=== PATIENT | male | born 1990 | race American Indian/Alaskan Native ===

== ENCOUNTER 2016-12-20 00:57 | Emergency (ER) | payer SELFPAY ==
[2016-12-20 01:10] VITALS: O2SAT 97
[2016-12-20] MEDS ORDERED: Bacitracin 500 Units/gm Oint Foilpak UD TOP ONE (01:14)
--- NOTE | 2016-12-20 01:27 | C.PDOC ---
History Of Present Illness A 26 y/o male complains of pain and swelling to the left wrist and abrasions to the bilateral forearms that occurred tonight. Patient states he slipped and fell when running around outdoors. Denies weakness, numbness, LOC, head injury, or any other complaints. Pt is left handed. Time Seen by Provider: 12/20/16 01:11 Chief Complaint (Nursing): Finger,Hand,&Wrist History Per: Patient History/Exam Limitations: no limitations Onset/Duration Of Symptoms: Hrs Current Symptoms Are (Timing): Still Present Quality: "Pain" Severity: Mild Exacerbating Factor(s): Movement Recent travel outside of the [place]: No Additional History Per: Patient Past Medical History Reviewed: Historical Data, Nursing Documentation, Vital Signs Vital Signs: Last Vital Signs Temp 97.7 F 12/20/16 02:29 Pulse 79 12/20/16 02:29 Resp 18 12/20/16 02:29 BP 119/80 12/20/16 02:29 Pulse Ox 97 12/20/16 02:29 - Medical History PMH: Asthma, Kidney Stones Denies: Chronic Kidney Disease Surgical History: Appendectomy Family History: States: Unknown Family Hx - Social History Hx Tobacco Use: No Hx Alcohol Use: No Hx Substance Use: No - Immunization History Hx Tetanus Toxoid Vaccination: Yes Hx Influenza Vaccination: No Hx Pneumococcal Vaccination: No Review Of Systems Except As Marked, All Systems Reviewed And Found Negative. Constitutional: Negative for: Fever, Chills, Other (Head injury) Musculoskeletal: Positive for: Arm Pain (left wrist) Skin: Positive for: Other (abrasions) Neurological: Negative for: Weakness, Numbness, Other (LOC) Physical Exam - Physical Exam Appears: Non-toxic, No Acute Distress Skin: Warm, Dry, Other (superficial abrasions to dorsal forearms bilaterally and to right palm) Head: Atraumatic, Normacephalic Eye(s): bilateral: Normal Inspection Neck: Normal ROM Pulses: Left Radial: Normal, Right Radial: Normal Neurological/Psych: Oriented x3, Normal Speech Gait: Steady Additional Physical Exam Comments: Left Upper extremity: obvious deformity, swelling and tenderness to dorsal radial wrist, limited ROM secondary to pain. radial pulse intact. Elbow, hand and digits nontender with normal ROM. All other extremities with FROM and nontender. ED Course And Treatment O2 Sat by Pulse Oximetry: 97 (RA) Pulse Ox Interpretation: Normal Orthopedic Time Out: Side verified, Site verified, Patient ID confirmed Procedure: Splint, Fracture reduction Type: Volar Location: Left, Wrist Consent obtained: Verbal Performed by: Mid-level Provider Diagnosis: Fracture (angulated) Type: Closed, Displaced, Angulated Location: Left, Distal Bone: Radius Anesthetic Technique: Regional block (Hematoma block) Anesthetic: Lidocaine 1% Capillary refill: Normal Distal Sensation: Normal Capillary Refill: Normal Distal Sensation: Normal Post-reduction Radiograph: Reduced (mildly displaced) Patient tolerated procedure: Well Medical Decision Making Medical Decision Making: Impression: A 26 y/o M c/o pain and swelling to the left wrist after fall Plan: -Bacitracin -Ultram -Ice -XRAY left wrist Progress: Xray shows impacted distal radial fracture with volar angulation Reduction and splint applied by PA. Arms sling applied Patient given follow up instructions with ortho in timely manner Disposition Counseled Patient/Family Regarding: Need For Followup, Rx Given - Disposition Referrals: Ramila Pérez MD [Staff Provider] - Disposition: HOME/ ROUTINE Disposition Time: 02:40 Condition: STABLE Additional Instructions: Your xray shows a wrist fracture. It is very important you follow up with orthopedic within 1-4 days. A splint has been applied which is a temporary cast. Do not wet splint, keep out of bath, and consider plastic bag. Take pain medication as needed. Motrin is for mild to moderate pain (1-7) and percocet is for severe pain (8-10) Seek medical attention if develop any numbness or pins and needle sensation. Prescriptions: Ibuprofen [Motrin] 600 mg PO Q8 #30 tab oxyCODONE/Acetaminophen [Percocet 5/325 mg Tab] 1 tab PO QID PRN #20 tab PRN Reason: Pain Instructions: Wrist Fracture in Adults (ED) Forms: Work Excuse - POA Present On Arrival: Falls Or Trauma - Clinical Impression Clinical Impression: Radius distal fracture - Scribe Statement The provider has reviewed the documentation as recorded by the Scribe Bhaskar khanna All medical record entries made by the Scribe were at my direction and personally dictated by me. I have reviewed the chart and agree that the record accurately reflects my personal performance of the history, physical exam, medical decision making, and the department course for this patient. I have also personally directed, reviewed, and agree with the discharge instructions and disposition.
[2016-12-20] MEDS ORDERED: Bacitracin 500 Units/gm Oint Foilpak UD ONE ×2 (01:31→01:32)
[2016-12-20] MEDS ORDERED: Lidocaine 1% Inj (20ml) INFIL STA (01:32)
[2016-12-20] MEDS ORDERED: Lidocaine 1% Inj (20ml) ONE (01:38)
[2016-12-20 02:30] VITALS: BP 119/80; PULSE 79; RESP 18; TEMP 97.7
--- NOTE | 2016-12-20 09:02 | RAD ---
PROCEDURE: Left Wrist Radiographs. HISTORY: post reduction film COMPARISON: 12/20/2016 at 1:19 a.m. FINDINGS: BONES: Status post close reduction distal radial fracture. There is persistent palmar angulation of the distal radial fragment. The fracture is intra-articular. There is no ulnar fracture. The radiocarpal articulation is maintained. Normal carpal alignment is maintained. . JOINTS: Normal. No dislocation. SOFT TISSUES: Normal. OTHER FINDINGS: None. IMPRESSION: Close reduction comminuted intra-articular distal radial fracture.
--- NOTE | 2016-12-20 09:03 | RAD ---
PROCEDURE: Left Wrist Radiographs. HISTORY: pain s.p fall COMPARISON: None. FINDINGS: BONES: Comminuted intra-articular distal radial fracture with displaced fragment and of the volar angulation of distal radius. No ulnar fracture. No radiocarpal dislocation. Normal carpal alignment maintained. JOINTS: Normal. No dislocation. SOFT TISSUES: Extensive palmar soft tissue swelling. OTHER FINDINGS: None. IMPRESSION: Comminuted intra-articular displaced distal radial fracture.
== END 2016-12-20 02:45 | disposition home or self-care (01) ==
LOC: C.ER 00:57
DX: S52.502A Unspecified fracture of the lower end of left radius, initial encounter for closed fracture (principal); W01.0XXA Fall on same level from slipping, tripping and stumbling without subsequent striking against object, initial encounter; Y93.89 Activity, other specified; Y92.414 Local residential or business street as the place of occurrence of the external cause

== ENCOUNTER 2017-01-16 06:43 | Day surgery (SDC) | payer SELFPAY ==
[2017-01-15 13:01] VITALS: BMI 26.5
[2017-01-16] MEDS ORDERED: Midazolam 2 MG/2 ML VIAL ONE (07:28)
[2017-01-16] MEDS ORDERED: Propofol 10 mg/ml Inj (20 ML) ONE (07:28)
[2017-01-16] MEDS ORDERED: Rocuronium 10 mg/ml (5 ml) ONE (07:29)
[2017-01-16] MEDS ORDERED: Lidocaine Hydrochloride 5 ML INJ ONE (07:29)
[2017-01-16] MEDS ORDERED: ceFAZolin IV 1 gm in Dextrose 1 GM/50 ML BAG IVPB ONE (07:37)
[2017-01-16] MEDS ORDERED: Bupivacaine 0.5% Inj(30mL) ONE (07:39)
[2017-01-16] MEDS ORDERED: Lactated Ringer's 1,000 ML IV ONE ×2 (08:00→09:05)
[2017-01-16] MEDS ORDERED: Neostigmine Methylsulfate 3mg/3ml Syringe IV ONE (09:31)
[2017-01-16] MEDS ORDERED: Oxycodone/Acetaminophen 5/325 mg Tab PO PRN ×3 (09:52→14:00)
--- NOTE | 2017-01-16 09:52 | PCM.SURG1 ---
Surgeon's Initial Post Op Note - Surgeon's Notes Surgeon: Faith Bacon MD Scalehouse Attendant: Kendall Jimenez PA-C Type of Anesthesia: General Endo Anesthesia Administered By: Dr. Jimenez Pre-Operative Diagnosis: Left distal radius fx Operative Findings: Tourniquet: 67min @250mmHg Post-Operative Diagnosis: same Operation Performed: ORIF left distal radius Specimen/Specimens Removed: none Estimated Blood Loss: EBL {In ML}: 3 Blood Products Given: N/A Drains Used: No Drains Post-Op Condition: Fair Date of Surgery/Procedure: 01/16/17 Time of Surgery/Procedure: 09:52
[2017-01-16] MEDS ORDERED: Albuterol HFA 90 mcg/actuation (8 g) IH PRN (09:53)
[2017-01-16] MEDS ORDERED: Lactated Ringer's 1,000 ML IV SCH (10:15)
[2017-01-16] MEDS: HYDROmorphone 0.5 mg/0.5 ml ISec IVP PRN ×2 (10:15→10:39)
[2017-01-16] MEDS ORDERED: Bupivacaine HCl 0.25% PF (10 ml) Inj ONE (11:11)
--- NOTE | 2017-01-16 11:35 | PCM.ANESB1 ---
Interscalene Block - Brachial Plexus Date of Procedure: 01/16/17 Anesthesiologist: cecilia Pre-Procedure Diagnosis: distal radial fx Post-Procedure Diagnosis: distal Procedure Performed: Interscalene Block of Brachial Plexus Left - Procedure Interscalene Block of Brachial Plexus: This procedure was explained to the patient that it is for post-operative pain management. Consent was obtained after a thorough discussion with the patient regarding the benefits and possible complications of local anesthetic block of the Brachial Plexus at the Interscalene area. The patient was brought to the Operating Room and standard monitors were applied. Time out was held with the circulating nurse to confirm the correct surgery and appropriate block. After applying Oxygen by nasal cannula , the patient's head was gently rotated away from the left operative shoulder and the supraclavicular groove was carefully palpated. The ultrasound transducer was then applied to the skin in the transverse plane and the brachial plexus was visualized. After identification, the the neck was prepped with Betadine solution three times and Lidocaine 1% was injected subcutaneously for topical analgesia. At this point, a # 22 gauge Stimuplex 2 inches insulated needle was inserted into the supraclavicular groove and directed in a caudal and midline direction. The needle was inserted lateral to the ultrasound transducer in-plane towards the brachial plexus in a [id number] direction. Needle advancement was performed carefully under direct ultrasound visualization. After repeated negative aspiration,__5___cc of__.25___, bupivicaine were injected and this was followed with _15____cc of ___.25__% ___bupivicaine . Under ultrasound guidance the local anesthetics were observed surrounding the trunks of the brachial plexus. The needle was removed intact and sterile dressing was applied. The patient had stable vital signs, was conscious and in no apparent distress. The patient tolerated the left supraclavicular block of the trunks of th ebracheal plexus well with stable vital signs and was prepared for subsequent surgery.
[2017-01-16 11:57] VITALS: RESP 18
[2017-01-16 15:18] VITALS: BP 110/63; PULSE 72; TEMP 97.8; O2SAT 100
--- NOTE | 2017-01-16 16:35 | RAD ---
PROCEDURE: Left Wrist Radiographs. HISTORY: s/p ORIF, pt in PACU COMPARISON: 01/05/2017 FINDINGS: BONES: The comminuted distal radial fracture with intra-articular extension is now anatomically aligned and transfixed by a a volar plate with horizontal trans 1st oriented screws. JOINTS: No dislocation. SOFT TISSUES: Diffuse soft tissue swelling OTHER FINDINGS: None. IMPRESSION: Status post open reduction and internal fixation of prior comminuted distal radial fracture
--- NOTE | 2017-01-17 01:10 | OP ---
PROCEDURE DATE: 01/16/2017 PREOPERATIVE DIAGNOSIS: Displaced left three-part intraarticular distal radius fracture. POSTOPERATIVE DIAGNOSIS: Displaced left three-part intraarticular distal radius fracture. PROCEDURE: Open reduction and internal fixation of the distal radius fracture using Synthes volar locking plate, 22662. SURGEON: Mickey Bacon MD OUTBOUND SALES EXECUTIVE: ORIAAN Edwards TYPE OF ANESTHESIA: Regional and supplemental intravenous sedation. DRAINS: None. ESTIMATED BLOOD LOSS: Minimal. COMPLICATIONS: None. OPERATIVE FINDINGS: A markedly unstable volar Auguste fracture of the distal radius. DISPOSITION: Stable to recovery room. DESCRIPTION OF PROCEDURE: The patient was taken to the operating room and placed supine on the operating room table after adequate regional anesthesia was given by the anesthesiologist. A well-padded non-sterile tourniquet was placed on the patient's left upper extremity. The left upper extremity was then prepped and draped in the standard surgical fashion. The proposed incision was marked out with sterile marking pen. This was a longitudinal incision over the FCR tendon. The Esmarch bandage was used to exsanguinate the limb and the tourniquet was inflated to 250 mmHg. The esmarch bandage was removed. An incision was made in the skin ulnarly and all superficial veins were cauterized. Therefore, the incision was carried down to the flexor carpi radialis sheath, which was incised in the radial most border. The FCR tendon was then retracted ulnarly. The floor of the FCR sheath was then incised as well. The flexor pollicis longus was retracted ulnarly and small branches of the radial artery were cauterized. The pronator quadratus was reflected in an L-shaped fashion. The base of the pronator quadratus was left on the ulnar side. The fascia was then visualized through the combination of curette and rongeur. All early healing was removed. The volar articular fragment was reduced via a combination of longitudinal retraction and digital pressure. A Synthes volar locking plate was placed in the volar aspect of the distal radius and was temporarily transfixed with Bola wires. X-rays revealed an anatomic reduction of the distal radius and excellent placement of the plate in a sequential fashion. Proximal 3.5 mm screws were placed in the plate in the standard AO fashion. Next, the Bola wires were removed. Distal locking screws were then placed in a standard fashion. Rigid fixation was obtained. The image intensification revealed excellent reduction of the fracture and excellent placement of all screws with no screws penetrating the articular surface. The wrist and palm were taken through range of motion with patient as obtainable and distal radial ulnar joint was stable. The wound was irrigated with normal saline. The pronator quadratus was placed back to its insertion of the radius with 4-0 Vicryl. The tourniquet was deflated and hemostasis was obtained using bipolar cautery. The incision was closed with interrupted nylon. A sterile dressing was placed plaster in volar splint. The patient tolerated the procedure well and was brought to the recovery room, awake, alert, and in excellent condition. Milena Chappell was the physician stores assistant who assisted me throughout the entirety of the case. Her help was needed for obtaining retraction of critical neurovascular bundles and safety for the patient. Mickey Bacon MD MTDErma
== END 2017-01-16 13:10 | disposition home or self-care (01) ==
LOC: C.SDS 06:43
PROVIDERS: ATTEND Orthopaedic Surgery
DX: S52.612A Displaced fracture of left ulna styloid process, initial encounter for closed fracture (principal); S52.572A Other intraarticular fracture of lower end of left radius, initial encounter for closed fracture; X58.XXXA Exposure to other specified factors, initial encounter
CPT/HCPCS: 25609; 73110; J0690; J1170; J2250; J2704; J2710; J3010; J7120

== ENCOUNTER 2018-02-15 11:28 | Emergency (ER) | payer OTHER ==
[2018-02-15 11:29] VITALS: BMI 26.5
[2018-02-15 12:01] VITALS: BP 123/78; PULSE 89; RESP 18; TEMP 97.8; O2SAT 100
[2018-02-15 12:42] LABS: URINE BILIRUBIN NEGATIVE (NEGATIVE); URINE CLARITY Clear (Clear); URINE COLOR Yellow (YELLOW); URINE GLUCOSE (UA) NORMAL (Normal); URINE LEUKOCYTE ESTERASE NEG Leu/uL (Negative); URINE PROTEIN NEGATIVE (NEGATIVE); URINE UROBILINOGEN NORMAL mg/dL (0.2-1.0)
[2018-02-15 12:44] LABS: URINE BLOOD 1+ (NEGATIVE)
[2018-02-15] MEDS ORDERED: cefTRIAXone 250 MG, Lidocaine Hydrochloride 1% 1 ML IM ONE (12:49)
--- NOTE | 2018-02-15 12:55 | C.PDOC ---
History Of Present Illness 27 year old female presents to the ER with a complaint of left wrist pain for the past 3 days. Patient has a Hx of left wrist surgery in the past, he reports he does a lot heavy lifting at work and believes he might have exacerbated it. Denies weakness or numbness. Patient also reports he has been recently exposed to chlamydia and is requesting treatment. Time Seen by Provider: 02/15/18 12:07 Chief Complaint (Nursing): Male Genitourinary History Per: Patient History/Exam Limitations: no limitations Onset/Duration Of Symptoms: Days Current Symptoms Are (Timing): Still Present Recent travel outside of the [place]: No Past Medical History Reviewed: Historical Data, Nursing Documentation, Vital Signs Vital Signs: Last Vital Signs Temp 97.8 F 02/15/18 11:58 Pulse 89 02/15/18 11:58 Resp 18 02/15/18 11:58 BP 123/78 02/15/18 11:58 Pulse Ox 100 02/15/18 13:31 - Medical History PMH: Asthma (NEVER HOSPITALIZED SEASONAL DUE TO ALLERGIES), Kidney Stones ( PASSED WITHOUT INTERVENTION) Surgical History: Appendectomy Family History: States: Unknown Family Hx - Social History Hx Tobacco Use: No Hx Alcohol Use: Yes Hx Substance Use: No - Immunization History Hx Tetanus Toxoid Vaccination: No Hx Influenza Vaccination: No Hx Pneumococcal Vaccination: No Review Of Systems Musculoskeletal: Positive for: Hand Pain Neurological: Negative for: Weakness, Numbness Physical Exam - Physical Exam Appears: Non-toxic Skin: Normal Color, Warm, Dry, No Rash Head: Atraumatic, Normacephalic Eye(s): bilateral: Normal Inspection Oral Mucosa: Moist Cardiovascular: Rhythm Regular Respiratory: Normal Breath Sounds Gastrointestinal/Abdominal: Soft, No Tenderness Extremity: Normal ROM (x4), Capillary Refill (<2 seconds), Other (Healed surgical scar to volar left wrist. Mild swelling and tenderness to volar left wrist.) Pulses: Left Radial: Normal, Right Radial: Normal Neurological/Psych: Oriented x3, Normal Speech, Normal Motor, Normal Sensation Gait: Steady ED Course And Treatment O2 Sat by Pulse Oximetry: 100 (Room air) Pulse Ox Interpretation: Normal - Other Rad Left wrist x-ray X-Ray: Viewed By Me, Read By Radiologist Interpretation: IMPRESSION: Prior ORIF distal radius. No evidence of hardware complication. Medical Decision Making Medical Decision Making: Left wrist x-ray ordered, results were negative. Rocephin and zithromax administered. Patient resting comfortably in the ER in no acute distress, vitals are stable, will discharge home with instructions to follow up with ortho. Disposition - Disposition Referrals: Mickey Bacon MD [Staff Provider] - Disposition: HOME/ ROUTINE Disposition Time: 13:25 Condition: STABLE Additional Instructions: Follow up with the Orthopedist within 1 week. Return if worsened. Prescriptions: Naproxen [Naprosyn] 500 mg PO BID #20 tab Instructions: Wrist Sprain (DC), Screening for Sexually Transmitted Infections Forms: [employer] (Italian) - Clinical Impression Clinical Impression: Wrist sprain, Sexually transmitted disease exposure - PA / [employer] / Resident Statement MD/DO has reviewed & agrees with the documentation as recorded. - Scribe Statement The provider has reviewed the documentation as recorded by the Scribe Nando Chávez All medical record entries made by the Scribe were at my direction and personally dictated by me. I have reviewed the chart and agree that the record accurately reflects my personal performance of the history, physical exam, medical decision making, and the department course for this patient. I have also personally directed, reviewed, and agree with the discharge instructions and disposition.
--- NOTE | 2018-02-15 13:17 | RAD ---
Date of service: 02/15/2018 PROCEDURE: Left Wrist Radiographs. HISTORY: wrist pain, swellin COMPARISON: Left wrist radiographs dated 04/18/2017. FINDINGS: BONES: Prior open reduction internal plate and screw fixation of the distal radius. No evidence of hardware complication. JOINTS: Unremarkable. SOFT TISSUES: Normal. OTHER FINDINGS: None. IMPRESSION: Prior ORIF distal radius. No evidence of hardware complication.
== END 2018-02-15 13:31 | disposition home or self-care (01) ==
LOC: C.ER 11:28
DX: S63.502A Unspecified sprain of left wrist, initial encounter (principal); X58.XXXA Exposure to other specified factors, initial encounter; Z20.2 Contact with and (suspected) exposure to infections with a predominantly sexual mode of transmission

== ENCOUNTER 2018-03-26 19:02 | Emergency (ER) | payer OTHER ==
[2018-03-26 19:03] VITALS: BMI 26.5
[2018-03-26 19:12] VITALS: BP 141/96; PULSE 65; RESP 18; TEMP 98.3; O2SAT 100
[2018-03-26 19:36] LABS: URINE BILIRUBIN NEGATIVE (NEGATIVE); URINE BLOOD 1+ (NEGATIVE); URINE CLARITY Clear (Clear); URINE COLOR Yellow (YELLOW); URINE GLUCOSE (UA) NORMAL (Normal); URINE LEUKOCYTE ESTERASE NEG Leu/uL (Negative); URINE PROTEIN NEGATIVE (NEGATIVE)
[2018-03-26] MEDS ORDERED: cefTRIAXone (Rocephin) 250 mg Inj IM STA (19:56)
--- NOTE | 2018-03-26 19:57 | C.PDOC ---
History Of Present Illness 27 year old male with a history of STDs presents to the ED for evaluation of right inguinal pain that radiates to the right testes for the last 4 days. Patient reports penile discharge and dysuria. Admits to having unprotected intercourse within the last week more than once while in [place]. Denies fever, nausea, vomiting, abdominal pain, back pain diarrhea, and any other associated symptoms. Time Seen by Provider: 03/26/18 19:35 Chief Complaint (Nursing): Male Genitourinary History Per: Patient History/Exam Limitations: no limitations Onset/Duration Of Symptoms: Days Current Symptoms Are (Timing): Still Present Past Medical History Reviewed: Historical Data, Nursing Documentation, Vital Signs Vital Signs: Last Vital Signs Temp 98.3 F 03/26/18 19:09 Pulse 65 03/26/18 19: Resp 18 03/26/18 19:09 BP 141/96 H 03/26/18 19: Pulse Ox 100 03/26/18 19:09 - Medical History PMH: Asthma (NEVER HOSPITALIZED SEASONAL DUE TO ALLERGIES), Kidney Stones (PASSED WITHOUT INTERVENTION) Surgical History: Appendectomy Family History: States: Unknown Family Hx - Social History Hx Tobacco Use: No Hx Alcohol Use: Yes Hx Substance Use: No - Immunization History Hx Tetanus Toxoid Vaccination: No Hx Influenza Vaccination: No Hx Pneumococcal Vaccination: No Review Of Systems Except As Marked, All Systems Reviewed And Found Negative. Constitutional: Negative for: Fever, Chills Gastrointestinal: Negative for: Nausea, Vomiting Genitourinary: Positive for: Dysuria, Penile Discharge, Penile Pain, Other (right inguinal pain.) Physical Exam - Physical Exam Appears: Well, Non-toxic, No Acute Distress Skin: Normal Color, Warm, Dry Head: Atraumatic, Normacephalic Eye(s): bilateral: Normal Inspection, EOMI Nose: Normal Oral Mucosa: Moist Neck: Normal ROM, Supple Chest: Symmetrical, No Deformity Cardiovascular: Rhythm Regular Respiratory: No Accessory Muscle Use, Other (no acute respiratory distress.) Gastrointestinal/Abdominal: Soft, No Tenderness Male Genital: Testicular Tenderness (right. ), Inguinal Tenderness (right. ), Circumcised, Other (talent acquisition coordinator: allyn tech) Neurological/Psych: Oriented x3, Normal Speech ED Course And Treatment O2 Sat by Pulse Oximetry: 100 (RA) Pulse Ox Interpretation: Normal - CT Scan/US US Testicular Other Rad Studies (CT/US): Read By Radiologist CT/US Interpretation: FINDINGS: RIGHT TESTICLE: Normal in size and echogenicity, no abnormal mass. Normal Doppler flow. there is testicular microlithiasis. LEFT TESTICLE: Normal in size and echogenicity, no abnormal mass. Normal Doppler flow. there is testicular microlithiasis. EPIDIDYMIDES: T he epididymes are normal in size and demonstrate Doppler flow within normal limits. SCROTUM: Unremarkable. No hydrocele, varicocele, or extratesticular mass seen. IMPRESSION: No acute abnormality evident on sonographic examination of the scrotum. no testicular torsion. Progress Note: Discussed with pt results and disucssed limitations. No evidence of abdominal pain. Tolerating PO afebrile. Discussed signs and symtpoms of concern and instructed to follow up with PMD in 1-2 days. Patient advised to treat his partner, use condoms. Disposition - Disposition Referrals: Michel Quintanilla MD [Staff Provider] - Disposition: HOME/ ROUTINE Disposition Time: 21:47 Condition: STABLE Additional Instructions: Treat your partner. Use condoms with intercourse. Follow up with urologist in 1- 2 days. Return to ER if symptoms persist or worsen. Instructions: Urethritis (DC) Forms: [employer] (Icelandic) - Clinical Impression Clinical Impression: Urethritis - PA / DUST HANDLER / Resident Statement MD/DO has reviewed & agrees with the documentation as recorded. - Scribe Statement The provider has reviewed the documentation as recorded by the Scribe (Kristal Hopkins) All medical record entries made by the Scribe were at my direction and personally dictated by me. I have reviewed the chart and agree that the record accurately reflects my personal performance of the history, physical exam, medical decision making, and the department course for this patient. I have also personally directed, reviewed, and agree with the discharge instructions and disposition.
--- NOTE | 2018-03-27 08:59 | US ---
Date of service: 03/26/2018 HISTORY: pain TECHNIQUE: Realtime sonography through the scrotum with color and doppler flow. COMPARISON: None Available. FINDINGS: RIGHT TESTICLE: Measures 4.7 x 1.8 x 2.9 cm. Homogeneous echotexture. No mass. Normal blood flow demonstrated. Incidentally noted testicular microlithiasis. RIGHT EPIDIDYMIS: Normal size, morphology and vascularity.. LEFT TESTICLE: Measures 4.4 x 1.8 x 2.8 cm. Homogeneous echotexture. No mass. Normal blood flow demonstrated. Incidentally noted testicular microlithiasis. LEFT EPIDIDYMIS: Normal size, morphology and vascularity.. HYDROCELE: None. VARICOCELE: None. OTHER FINDINGS: None. IMPRESSION: Bilateral testicular microlithiasis incidentally noted. No evidence of testicular torsion. No evidence of epididymo-orchitis. The preliminary findings for this examination were reported by [facility] at 9:44 p.m. on 03/26/2018. There is concurrence of this report with the preliminary findings.
== END 2018-03-26 22:02 | disposition home or self-care (01) ==
LOC: C.ER 19:02
DX: N34.2 Other urethritis (principal)
CPT/HCPCS: 76870; 81001; 87086; 87491; 87591; 96372; 99283; J0696

== ENCOUNTER 2018-05-07 18:44 | Emergency (ER) | payer OTHER ==
[2018-05-07 18:44] VITALS: BMI 26.5
[2018-05-07 18:53] VITALS: BP 138/98; PULSE 53; RESP 16; TEMP 98; O2SAT 100
[2018-05-07] MEDS ORDERED: cefTRIAXone (Rocephin) 250 mg Inj IM STA (19:28)
[2018-05-07 19:57] LABS: URINE BACTERIA RARE (<OCC); URINE BILIRUBIN NEGATIVE (NEGATIVE); URINE BLOOD 1+ (NEGATIVE); URINE CLARITY Clear (Clear); URINE COLOR Yellow (YELLOW); URINE GLUCOSE (UA) NORMAL (Normal); URINE LEUKOCYTE ESTERASE NEG Leu/uL (Negative); URINE PROTEIN NEGATIVE (NEGATIVE)
--- NOTE | 2018-05-07 20:20 | C.PDOC ---
History Of Present Illness 27 year old male presents to the ED for evaluation of suprapublic pain, dysuria, and penile discharge for 3 days. Patient reports having unprotected sex 2 weeks ago, concerned for STD. Denies fever, nausea, vomiting, lesions, and any other associated symptoms. Time Seen by Provider: 05/07/18 19:18 Chief Complaint (Nursing): Abdominal Pain History Per: Patient History/Exam Limitations: no limitations Onset/Duration Of Symptoms: Days Current Symptoms Are (Timing): Still Present Past Medical History Reviewed: Historical Data, Nursing Documentation, Vital Signs Vital Signs: Last Vital Signs Temp 98 F 05/07/18 18:49 Pulse 53 L 05/07/18 18:49 Resp 16 05/07/18 18:49 BP 138/98 H 05/07/18 18:49 Pulse Ox 100 05/07/18 18:49 - Medical History PMH: Asthma (NEVER HOSPITALIZED SEASONAL DUE TO ALLERGIES), Kidney Stones (PASS ED WITHOUT INTERVENTION) Surgical History: Appendectomy Family History: States: Unknown Family Hx - Social History Hx Tobacco Use: No Hx Alcohol Use: Yes Hx Substance Use: No - Immunization History Hx Tetanus Toxoid Vaccination: No Hx Influenza Vaccination: No Hx Pneumococcal Vaccination: No Review Of Systems Constitutional: Negative for: Fever Gastrointestinal: Positive for: Abdominal Pain (suprapublic pain.). Negative for: Nausea, Vomiting Genitourinary: Positive for: Dysuria, Penile Discharge Physical Exam - Physical Exam Appears: Well, Non-toxic, No Acute Distress Skin: Warm, Dry, No Rash Head: Atraumatic, Normacephalic Eye(s): bilateral: Normal Inspection Oral Mucosa: Moist Neck: Normal ROM, Supple Gastrointestinal/Abdominal: Normal Exam, Soft, No Tenderness Back: Normal Inspection, No CVA Tenderness Male Genital: Other (refused genitalia exam.) Neurological/Psych: Oriented x3, Normal Speech ED Course And Treatment O2 Sat by Pulse Oximetry: 100 (RA) Pulse Ox Interpretation: Normal Progress Note: Plan: Chlamydia. Rocephin. Azithromycin. Urinalysis. Progress/Update: Patient stable for discharge home. Patient refused genital exam. Advised on the risks of unprotected sex. Stable for discharge home. Disposition Counseled Patient/Family Regarding: Diagnosis, Need For Followup - Disposition Referrals: [facility] [Outside] STD clinic, Outpatient [Other] Disposition: HOME/ ROUTINE Disposition Time: 20:18 Condition: STABLE Additional Instructions: Please follow up in STD clinic for full testing Have partner tested Use condoms Return to ER if abdomen, genitalia pain, fever, vomiting or worse Instructions: Urethritis (DC) Forms: [employer] (Persian) - Clinical Impression Clinical Impression: Urethritis - PA / [employer] / Resident Statement MD/DO has reviewed & agrees with the documentation as recorded. - Scribe Statement The provider has reviewed the documentation as recorded by the Scribe (Kristal Hopkins) All medical record entries made by the Scribe were at my direction and personally dictated by me. I have reviewed the chart and agree that the record accurately reflects my personal performance of the history, physical exam, medical decision making, and the department course for this patient. I have also personally directed, reviewed, and agree with the discharge instructions and disposition.
== END 2018-05-07 20:25 | disposition home or self-care (01) ==
LOC: C.ER 18:44
DX: N34.2 Other urethritis (principal)
CPT/HCPCS: 81001; 87491; 87591; 96372; 99283; J0696